=== PATIENT | male | born 1960 | race Caucasian/White ===

== ENCOUNTER 2017-09-08 01:18 | Emergency (ER) | payer MEDICAID ==
[~2017-09-08] VITALS: Ht 175.3 cm; Wt 77.1 kg
[2017-09-08 01:18] VITALS: BP 114/76
--- NOTE | 2017-09-08 01:18 | NUR ---
PT CHATO ALS. TAKEN TO BED 1
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
--- NOTE | 2017-09-08 01:20 | NUR ---
PT UNABLE TO LIFT LEGS INDEPENDENTLY AT BASELINE, UNABLE TO WIGGLE R TOES AT THIS TIME, PT ABLE TO WIGGLE L TOES WITH MINIMAL ROM
[2017-09-08] MEDS ORDERED: MORPHINE SULFATE 4 MG/ML SYR IM ONE ×2 (02:40→03:15)
--- NOTE | 2017-09-08 02:50 | NUR ---
PT C/O PERSISTENT R LEG PAIN, ADMINISTERED MORPHINE IM ORDERED WITH EDUCATION. VSS, ALL NEEDS MET AT THIS TIME.
--- NOTE | 2017-09-08 03:50 | NUR ---
HOMELESS RESOURCE PACKED PROVIDED, HOMELESS PATIENT WAIVER FORM SIGNED, BUS PASS PROVIDED.
[2017-09-08 03:54] VITALS: BP 116/70
--- NOTE | 2017-09-08 03:54 | NUR ---
Patient discharged with v/s stable. Written and verbal after care instructions given and explained. Patient alert, oriented and verbalized understanding of instructions. Wheel Chair self independently. All questions addressed prior to discharge. ID band removed. Patient advised to follow up with PMD. Rx of norco 5-325 given. Patient educated on indication of medication including possible reaction and side effects. Opportunity to ask questions provided and answered.
== END 2017-09-08 03:54 | disposition home or self-care (01) ==
LOC: MED 01:18
DX: M79.604 Pain in right leg (principal); F20.9 Schizophrenia, unspecified; Z90.89 Acquired absence of other organs; F17.210 Nicotine dependence, cigarettes, uncomplicated
CPT/HCPCS: 82948; 96372; 99284; J2270